=== PATIENT | male | born 1950 | race Caucasian/White ===

== ENCOUNTER 2023-10-04 22:04 | Emergency (ER) | payer MEDICARE ==
[2023-10-04 22:30] VITALS: PULSE 97; RESP 20; O2SAT 97
[2023-10-04 23:39] VITALS: PULSE 85; RESP 19; O2SAT 99
[2023-10-05 01:12] VITALS: PULSE 89; RESP 18; TEMP 98.2; O2SAT 99
== END 2023-10-05 00:30 | disposition home or self-care (01) ==
LOC: ER 22:12
DX: Z43.0 Encounter for attention to tracheostomy (principal); I12.0 Hypertensive chronic kidney disease with stage 5 chronic kidney disease or end stage renal disease; N18.6 End stage renal disease; G40.909 Epilepsy, unspecified, not intractable, without status epilepticus; Z86.73 Personal history of transient ischemic attack (TIA), and cerebral infarction without residual deficits; Z86.711 Personal history of pulmonary embolism; Z86.718 Personal history of other venous thrombosis and embolism
CPT/HCPCS: 71046; 94799; 99283

== ENCOUNTER 2023-10-08 16:44 | Emergency (ER) | payer MEDICARE ==
[~2023-10-08] VITALS: Ht 172.7 cm; Wt 86.2 kg
[2023-10-08 17:55] VITALS: PULSE 74; RESP 22; O2SAT 96
[2023-10-08 19:13] VITALS: PULSE 99; RESP 20; TEMP 99.6
[2023-10-08 20:12] VITALS: BP 148/82; PULSE 99; RESP 20; TEMP 99.6; O2SAT 94
== END 2023-10-08 20:13 ==
LOC: ER 17:05
DX: I12.9 Hypertensive chronic kidney disease with stage 1 through stage 4 chronic kidney disease, or unspecified chronic kidney disease (principal); N18.6 End stage renal disease; Z43.0 Encounter for attention to tracheostomy
CPT/HCPCS: 94799; 99283

== ENCOUNTER 2024-01-24 13:15 | Emergency (ER) | payer MEDICARE ==
[~2024-01-24] VITALS: Ht 172.7 cm; Wt 86.2 kg
[2024-01-24 13:18] VITALS: TEMP 97.4
[2024-01-24 14:11] VITALS: PULSE 76; RESP 20
[2024-01-24 14:35] VITALS: BP 128/62; PULSE 78; RESP 20; TEMP 97.6; O2SAT 97
== END 2024-01-24 14:42 ==
LOC: ER 13:20
DX: Z43.0 Encounter for attention to tracheostomy (principal); I12.0 Hypertensive chronic kidney disease with stage 5 chronic kidney disease or end stage renal disease; N18.6 End stage renal disease; G40.909 Epilepsy, unspecified, not intractable, without status epilepticus; E78.5 Hyperlipidemia, unspecified; K21.9 Gastro-esophageal reflux disease without esophagitis; L89.329 Pressure ulcer of left buttock, unspecified stage; L89.319 Pressure ulcer of right buttock, unspecified stage; Z86.718 Personal history of other venous thrombosis and embolism; Z86.73 Personal history of transient ischemic attack (TIA), and cerebral infarction without residual deficits
CPT/HCPCS: 99283

== ENCOUNTER 2024-01-29 09:31 | Inpatient (IN) | payer MEDICARE ==
[~2024-01-29] VITALS: Ht 185.4 cm; Wt 88.9 kg
[2024-01-29 09:58] VITALS: PULSE 85; RESP 18; O2SAT 97
[2024-01-29] MEDS ORDERED: ONDANSETRON HCL INJ 2MG/ML 2ML 2 MG/ML VIAL IV PRN (11:30)
[2024-01-29 12:30] VITALS: PULSE 88; RESP 22; O2SAT 93
[2024-01-29] MEDS ORDERED: ACETAMINOPHEN 650 MG SUPP PR PRN (13:30)
[2024-01-29] MEDS ORDERED: HYDRALAZINE HCL 20 MG/ML VIAL IV PRN (13:30)
[2024-01-29 16:00] VITALS: PULSE 83; RESP 16; O2SAT 99
[2024-01-29 19:38] LABS: BASOPHILS % 0.4 % (0.0-1.0); EOSINOPHILS # (AUTO) 0.4 (0.0-0.4); EOSINOPHILS % 5.9 % (0.0-6.0); HEMATOCRIT 43.5 % (38.2-49.6); HEMOGLOBIN 14.5 g/dL (14.0-18.0); LYMPHOCYTES # (AUTO) 1.5 (1.0-3.2); LYMPHOCYTES % 22.3 % (18.0-39.1); MEAN CORPUSCULAR HEMOGLOBIN 31.6 pg (28-32); MEAN CORPUSCULAR HGB CONC 33.3 g/dL (31-35); MEAN CORPUSCULAR VOLUME 94.8 fL (81-99); MONOCYTES # (AUTO) 0.5 (0.2-0.8); MONOCYTES % 7.8 % (4.4-11.3); NEUTROPHILS # (AUTO) 4.3 (2.1-6.9); NEUTROPHILS % 63.5 % (38.7-80.0); PLATELET COUNT 251 x10e3/uL (140-360); RED BLOOD COUNT 4.59 x10e6/uL (4.3-5.7); RED CELL DISTRIBUTION WIDTH 12.2 % (11.7-14.4); WHITE BLOOD COUNT 6.77 x10e3/uL (4.8-10.8)
[2024-01-29] MEDS: SODIUM CHLORIDE 0.9% 1000ML 1,000 ML IV SCH (19:39)
[2024-01-29 19:42] VITALS: TEMP 98.4
[2024-01-29 19:45] VITALS: PULSE 85; RESP 16; O2SAT 99
[2024-01-29 19:46] LABS: INR 1.02; PROTHROMBIN TIME 13.9 seconds (11.9-14.5)
[2024-01-29 19:47] LABS: PARTIAL THROMBOPLASTIN TIME 28.7 seconds (23.8-35.5)
[2024-01-29 19:56] LABS: ALBUMIN 3.4 g/dL (3.5-5.0); ANION GAP 15.9 mmol/L (8-16); BILIRUBIN,TOTAL 0.8 mg/dL (0.2-1.2); CALCIUM 9.6 mg/dL (8.4-10.2); CREATININE, SERUM 0.69 mg/dL (0.72-1.25); POTASSIUM 3.9 mmol/L (3.5-5.1); TOTAL PROTEIN 6.8 g/dL (6.5-8.1)
[2024-01-29 21:04] VITALS: PULSE 92; RESP 20
[2024-01-30] VITALS (11 sets, daily range): BP systolic 123–149; BP diastolic 65–97; PULSE 70–89; RESP 16–21; TEMP 97.6–98.2; O2SAT 92–100
[2024-01-30] MEDS ORDERED: AMLODIPINE BESY10 MG GT (02:41)
[2024-01-30] MEDS ORDERED: ATIVAN1 MG GT (02:41)
[2024-01-30] MEDS ORDERED: COLACE100 MG/10 GT (02:41)
[2024-01-30] MEDS ORDERED: METOPROLOL TART25 MG GT (03:06)
[2024-01-30] MEDS ORDERED: NALOXONE H0.4 MG/1 M (03:06)
[2024-01-30] MEDS ORDERED: MODAFINIL200 MG GT (03:06)
[2024-01-30] MEDS ORDERED: IPRAT-ALBUT 0.5-3 ML INH (03:06)
[2024-01-30] MEDS ORDERED: TERAZOSIN HCL2 MG GT (03:06)
[2024-01-30] MEDS ORDERED: FAMOTIDINE20 MG/2 ML GT (03:06)
[2024-01-30] MEDS ORDERED: KEPPRA500 MG/5 M GT (03:06)
[2024-01-30] MEDS ORDERED: TRANSDERM-SCOP1 EACH TD (03:06)
[2024-01-30] MEDS ORDERED: POLYETHYLENE GL17 GM GT (03:06)
[2024-01-30] MEDS ORDERED: SCOPOLAMINE 1 MG PATCH TD SCH (12:00)
[2024-01-30] MEDS ORDERED: POLYETHYLENE GLYCOL 3350 17 GM PACK GT PRN (12:00)
[2024-01-30] MEDS: ALBUTEROL/IPRATROPIUM 3 ML NEB INH SCH (13:32)
[2024-01-30] MEDS: TERAZOSIN HCL 1 MG CAP GT SCH (14:58)
[2024-01-30] MEDS: LEVETIRACETAM ORAL SOLUTION 500 MG/5 ML SOLN PEG SCH (14:58)
[2024-01-30] MEDS: MODAFINIL 100 MG TAB GT SCH (14:59)
[2024-01-30] MEDS: LORAZEPAM 0.5 MG TAB GT SCH (14:59)
[2024-01-30] MEDS: FAMOTIDINE 20 MG TAB GT SCH (14:59)
[2024-01-30] MEDS: AMLODIPINE BESYLATE 10 MG TAB GT SCH (14:59)
[2024-01-30] MEDS: DOCUSATE SODIUM LIQD 100 MG/10 ML UDC GT SCH (18:37)
[2024-01-30] MEDS: METOPROLOL TARTRATE 25 MG TAB GT SCH (18:37)
[2024-01-31] VITALS (8 sets, daily range): BP systolic 108–147; BP diastolic 56–97; PULSE 63–93; RESP 18–21; TEMP 97.5–98.2; O2SAT 95–100
[2024-01-31] MEDS ORDERED: FAMOTIDINE 20 MG/2 ML VIAL IV SCH (09:00)
== END 2024-01-31 17:50 | DRG 206 ==
LOC: ER 09:48 → ERHOLD 11:22 → MED/SURG2 23:18 → OBSVTOIN 01-31 12:00
PROVIDERS: ADMIT Internal Medicine; ATTEND Internal Medicine
DX: J95.03 Malfunction of tracheostomy stoma (principal); I69.354 Hemiplegia and hemiparesis following cerebral infarction affecting left non-dominant side; J96.10 Chronic respiratory failure, unspecified whether with hypoxia or hypercapnia; I69.351 Hemiplegia and hemiparesis following cerebral infarction affecting right dominant side; I69.320 Aphasia following cerebral infarction; R13.12 Dysphagia, oropharyngeal phase; Z99.81 Dependence on supplemental oxygen; G40.909 Epilepsy, unspecified, not intractable, without status epilepticus; I10 Essential (primary) hypertension; K21.9 Gastro-esophageal reflux disease without esophagitis; E78.5 Hyperlipidemia, unspecified; Z86.711 Personal history of pulmonary embolism; Z86.718 Personal history of other venous thrombosis and embolism; Z87.820 Personal history of traumatic brain injury; Z53.8 Procedure and treatment not carried out for other reasons; Z93.1 Gastrostomy status
CPT/HCPCS: 36415; 71045; 80053; 85025; 85610; 85730; 94640; 94799; 99285; G0378; J2470; J7030

== ENCOUNTER 2024-02-14 10:39 | Emergency (ER) | payer MEDICARE ==
[~2024-02-14] VITALS: Ht 185.4 cm; Wt 88.9 kg
[~2024-02-14 10:39] MED LIST: AMLODIPINE BESY10 MG GT; ATIVAN1 MG GT; COLACE100 MG/10 GT; FAMOTIDINE20 MG/2 ML GT; IPRAT-ALBUT 0.5-3 ML INH; KEPPRA500 MG/5 M GT; METOPROLOL TART25 MG GT; MODAFINIL200 MG GT; NALOXONE H0.4 MG/1 M; POLYETHYLENE GL17 GM GT; TERAZOSIN HCL2 MG GT; TRANSDERM-SCOP1 EACH TD
[2024-02-14 10:45] VITALS: TEMP 97.8
[2024-02-14 12:00] VITALS: PULSE 67; RESP 18
[2024-02-14 13:30] VITALS: BP 144/89; PULSE 79; RESP 19; TEMP 98; O2SAT 100
== END 2024-02-14 13:33 ==
LOC: ER 10:44
DX: Z43.1 Encounter for attention to gastrostomy (principal); G40.909 Epilepsy, unspecified, not intractable, without status epilepticus; I12.0 Hypertensive chronic kidney disease with stage 5 chronic kidney disease or end stage renal disease; N18.6 End stage renal disease; E78.5 Hyperlipidemia, unspecified; K21.9 Gastro-esophageal reflux disease without esophagitis; Z86.73 Personal history of transient ischemic attack (TIA), and cerebral infarction without residual deficits
CPT/HCPCS: 99283

== ENCOUNTER 2024-06-24 20:56 | Emergency (ER) | payer MEDICARE ==
[~2024-06-24] VITALS: Ht 185.4 cm; Wt 88.9 kg
[2024-06-24 21:00] VITALS: RESP 14; TEMP 98.4
[2024-06-24 23:03] VITALS: PULSE 87
[2024-06-25 03:06] VITALS: BP 121/87; O2SAT 94
== END 2024-06-25 03:07 ==
LOC: ER 20:59
DX: S00.83XA Contusion of other part of head, initial encounter (principal); M54.50 Low back pain, unspecified; W06.XXXA Fall from bed, initial encounter; Y93.84 Activity, sleeping; Y92.89 Other specified places as the place of occurrence of the external cause; I12.0 Hypertensive chronic kidney disease with stage 5 chronic kidney disease or end stage renal disease; N18.6 End stage renal disease; Z99.2 Dependence on renal dialysis; L89.329 Pressure ulcer of left buttock, unspecified stage; L89.319 Pressure ulcer of right buttock, unspecified stage; E78.5 Hyperlipidemia, unspecified; K21.9 Gastro-esophageal reflux disease without esophagitis; G40.909 Epilepsy, unspecified, not intractable, without status epilepticus; Z86.718 Personal history of other venous thrombosis and embolism; Z86.73 Personal history of transient ischemic attack (TIA), and cerebral infarction without residual deficits
CPT/HCPCS: 70450; 72131; 72170; 99283

== ENCOUNTER 2024-07-04 22:37 | Emergency (ER) | payer MEDICARE ==
[~2024-07-04] VITALS: Ht 185.4 cm; Wt 88.9 kg
[2024-07-04 22:40] VITALS: PULSE 86; RESP 16; TEMP 98.4; O2SAT 96
[2024-07-04] MEDS ORDERED: DIATRIZOATE MEGL/DIATRIZOA SOD 30 ML BTL PO ONE (23:47)
[2024-07-10] MEDS ORDERED: PANTOPRAZOLE SO40 MG PO (10:30)
[2024-07-10] MEDS ORDERED: CEPHALEXIN500 MG PO (10:31)
== END 2024-07-05 01:43 ==
LOC: ER 23:09
DX: Z43.1 Encounter for attention to gastrostomy (principal); I12.0 Hypertensive chronic kidney disease with stage 5 chronic kidney disease or end stage renal disease; N18.6 End stage renal disease; E78.5 Hyperlipidemia, unspecified; G40.909 Epilepsy, unspecified, not intractable, without status epilepticus; K21.9 Gastro-esophageal reflux disease without esophagitis; Z87.820 Personal history of traumatic brain injury; Z86.718 Personal history of other venous thrombosis and embolism
CPT/HCPCS: 43762; 74018; 99283; Q9963

== ENCOUNTER 2024-07-05 22:49 | Inpatient (IN) | payer MEDICARE ==
[~2024-07-05] VITALS: Ht 185.4 cm; Wt 88.9 kg
[2024-07-05 23:24] LABS: BASOPHILS % 0.1 % (0.0-1.0); HEMATOCRIT 44.6 % (38.2-49.6); HEMOGLOBIN 15.6 g/dL (14.0-18.0); LYMPHOCYTES # (AUTO) 0.3 (1.0-3.2); LYMPHOCYTES % 1.6 % (18.0-39.1); MEAN CORPUSCULAR HEMOGLOBIN 32.2 pg (28-32); MONOCYTES # (AUTO) 0.5 (0.2-0.8); MONOCYTES % 2.6 % (4.4-11.3); NEUTROPHILS # (AUTO) 17.4 (2.1-6.9); NEUTROPHILS % 95.4 % (38.7-80.0); PLATELET COUNT 253 x10e3/uL (140-360); RED BLOOD COUNT 4.85 x10e6/uL (4.3-5.7); RED CELL DISTRIBUTION WIDTH 12.7 % (11.7-14.4); WHITE BLOOD COUNT 18.21 x10e3/uL (4.8-10.8)
[2024-07-05 23:45] LABS: ALBUMIN 3.1 g/dL (3.5-5.0); ALBUMIN/GLOBULIN RATIO 0.8 (0.8-2.0); ANION GAP 17.4 mmol/L (8-16); BILIRUBIN,TOTAL 1.8 mg/dL (0.2-1.2); CALCIUM 9.1 mg/dL (8.4-10.2); CREATININE, SERUM 0.73 mg/dL (0.72-1.25); POTASSIUM 4.4 mmol/L (3.5-5.1); TOTAL PROTEIN 6.8 g/dL (6.5-8.1)
[2024-07-05 23:51] LABS: TROPONIN I 0.005 ng/mL (0-0.300)
[2024-07-05 23:54] LABS: BILIRUBIN,URINE SMALL (NEGATIVE); CLARITY,URINE CLEAR (CLEAR); COLOR,URINE AMBER (YELLOW); GLUCOSE, URINE NEGATIVE (NEGATIVE); KETONES,URINE NEGATIVE (NEGATIVE); LEUKOCYTE ESTERASE ,URINE SMALL (NEGATIVE); NITRITE,URINE NEGATIVE (NEGATIVE); PH,URINE 5.5 (5 - 7); PROTEIN,URINE DIPSTICK 2+ (NEGATIVE); URINE UROBILINOGEN 1 mg/dL (0.2 - 1)
[2024-07-06] VITALS (15 sets, daily range): BP systolic 97–119; BP diastolic 60–65; PULSE 78–112; RESP 18–24; TEMP 97.1–99.9; O2SAT 90–98
[2024-07-06] MEDS: SODIUM CHLORIDE 0.9% 1000ML 1,000 ML IV STA (00:08)
[2024-07-06] MEDS: ACETAMINOPHEN 1000 MG/100 ML IV STA (00:08)
[2024-07-06 00:16] LABS: BACTERIA,URINE MANY /HPF; EPITHELIAL CELLS,URINE FEW /LPF; WBC,URINE (MAN) 21-50 /HPF (0-5)
[2024-07-06] MEDS ORDERED: IOPAMIDOL 370 MG/ML 100 ML INFUS..BTL INJ ONE (00:25)
[2024-07-06] MEDS ORDERED: Morphine 4mg INJECTION 4 MG/ML INJ IV PRN (02:30)
[2024-07-06] MEDS ORDERED: ONDANSETRON HCL INJ 2MG/ML 2ML 2 MG/ML VIAL IV PRN (02:30)
[2024-07-06 02:49] LABS: INR 1.07; PROTHROMBIN TIME 14.6 seconds (11.9-14.5)
[2024-07-06 02:50] LABS: PARTIAL THROMBOPLASTIN TIME 30.3 seconds (23.8-35.5)
[2024-07-06] MEDS: SODIUM CHLORIDE 0.9% 1000ML 1,000 ML IV SCH (04:21)
[2024-07-06] MEDS ORDERED: ALBUTEROL/IPRATROPIUM 3 ML NEB INH PRN (07:45)
[2024-07-06] MEDS ORDERED: POLYETHYLENE GLYCOL 3350 17 GM PACK GT PRN (07:45)
[2024-07-06 08:12] LABS: TROPONIN I 0.027 ng/mL (0-0.300)
[2024-07-06] MEDS: LACTATED RINGER'S 1,000 ML INJ SCH (08:50)
[2024-07-06] MEDS: DOCUSATE SODIUM LIQD 100 MG/10 ML UDC GT SCH (08:51)
[2024-07-06] MEDS ORDERED: LEVETIRACETAM 500 MG/5 ML VIAL IV SCH (09:00)
[2024-07-06] MEDS: LEVETIRACETAM 500MG/5ML VIAL 500 MG in SODIUM CHLORIDE 0.9% 100 ML IV SCH (09:48)
[2024-07-06] MEDS ORDERED: METOPROLOL TARTRATE INJ 1 MG/ML VIAL IV PRN (10:00)
[2024-07-06 12:39] LABS: CORONAVIRUS COVID-19 AG NEGATIVE (NEGATIVE); INFLUENZA A AG NEGATIVE (NEGATIVE); INFLUENZA B AG NEGATIVE (NEGATIVE)
[2024-07-06 12:42] LABS: BODY FLUID APPEARANCE TURBID; BODY FLUID COLOR YELLOW; BODY FLUID TYPE PLEURAL; RBC,BODY FLUID 3000 cells/uL; WBC,BODY FLUID 22042 cells/uL
[2024-07-06 13:50] LABS: TROPONIN I 0.018 ng/mL (0-0.300)
[2024-07-06 14:46] LABS: NEUTROPHILS,BODY FLUID 95 %; OTHER CELLS,BODY FLUID 5 %
[2024-07-06 18:20] LABS: TOTAL CELLS COUNTED (DIFF) 100
[2024-07-07] VITALS (8 sets, daily range): BP systolic 96–128; BP diastolic 62–68; PULSE 80–102; RESP 18–22; TEMP 97.1–99.3; O2SAT 92–98
[2024-07-07 05:43] LABS: BASOPHILS % 0.1 % (0.0-1.0); HEMATOCRIT 37.5 % (38.2-49.6); HEMOGLOBIN 12.7 g/dL (14.0-18.0); LYMPHOCYTES # (AUTO) 0.6 (1.0-3.2); LYMPHOCYTES % 3.6 % (18.0-39.1); MEAN CORPUSCULAR HEMOGLOBIN 32.2 pg (28-32); MEAN CORPUSCULAR HGB CONC 33.9 g/dL (31-35); MEAN CORPUSCULAR VOLUME 94.9 fL (81-99); MONOCYTES # (AUTO) 0.5 (0.2-0.8); MONOCYTES % 2.7 % (4.4-11.3); NEUTROPHILS # (AUTO) 15.9 (2.1-6.9); NEUTROPHILS % 93.3 % (38.7-80.0); PLATELET COUNT 237 x10e3/uL (140-360); RED BLOOD COUNT 3.95 x10e6/uL (4.3-5.7); WHITE BLOOD COUNT 17.05 x10e3/uL (4.8-10.8)
[2024-07-07 06:13] LABS: ALBUMIN 2.2 g/dL (3.5-5.0); ALBUMIN/GLOBULIN RATIO 0.7 (0.8-2.0); BILIRUBIN,TOTAL 1.3 mg/dL (0.2-1.2); CALCIUM 9.2 mg/dL (8.4-10.2); CREATININE, SERUM 1.05 mg/dL (0.72-1.25); TOTAL PROTEIN 5.5 g/dL (6.5-8.1)
[2024-07-07 06:29] LABS: TROPONIN I 0.028 ng/mL (0-0.300)
[2024-07-07 14:12] LABS: GLUCOSE,BODY FLUID 115 mg/dL
[2024-07-07] MEDS ORDERED: PROPOFOL IV EMULSION 10 MG/ML 20 ML VIAL ONE (19:12)
[2024-07-07] MEDS ORDERED: FENTANYL CITRATE/PF 100MCG/2 ML INJ ONE (19:12)
[2024-07-07] MEDS ORDERED: Morphine 4mg INJECTION 4 MG/ML INJ IV PRN ×2 (23:30)
[2024-07-08] VITALS (10 sets, daily range): BP systolic 112–133; BP diastolic 61–75; PULSE 74–92; RESP 20; TEMP 97.2–98.5; O2SAT 93–97
[2024-07-08 09:30] LABS: ANION GAP 13.7 mmol/L (8-16); BASOPHILS % 0.1 % (0.0-1.0); CALCIUM 8.9 mg/dL (8.4-10.2); CREATININE, SERUM 0.76 mg/dL (0.72-1.25); HEMATOCRIT 33.6 % (38.2-49.6); HEMOGLOBIN 11.3 g/dL (14.0-18.0); LYMPHOCYTES # (AUTO) 0.5 (1.0-3.2); LYMPHOCYTES % 4.7 % (18.0-39.1); MEAN CORPUSCULAR HEMOGLOBIN 32.5 pg (28-32); MEAN CORPUSCULAR HGB CONC 33.6 g/dL (31-35); MEAN CORPUSCULAR VOLUME 96.6 fL (81-99); MONOCYTES # (AUTO) 0.4 (0.2-0.8); MONOCYTES % 3.6 % (4.4-11.3); NEUTROPHILS # (AUTO) 9.6 (2.1-6.9); NEUTROPHILS % 91.3 % (38.7-80.0); PLATELET COUNT 217 x10e3/uL (140-360); POTASSIUM 3.7 mmol/L (3.5-5.1); RED BLOOD COUNT 3.48 x10e6/uL (4.3-5.7); RED CELL DISTRIBUTION WIDTH 13.2 % (11.7-14.4); WHITE BLOOD COUNT 10.49 x10e3/uL (4.8-10.8)
[2024-07-08] MEDS: LACTATED RINGER'S 1,000 ML INJ ONE (09:31)
[2024-07-09] VITALS (9 sets, daily range): BP systolic 118–148; BP diastolic 62–91; PULSE 76–82; RESP 18–21; TEMP 97.2–98.1; O2SAT 95–97
[2024-07-09 06:11] LABS: EOSINOPHILS % 0.1 % (0.0-6.0); HEMATOCRIT 35.8 % (38.2-49.6); HEMOGLOBIN 11.8 g/dL (14.0-18.0); LYMPHOCYTES # (AUTO) 0.6 (1.0-3.2); LYMPHOCYTES % 7.7 % (18.0-39.1); MEAN CORPUSCULAR HEMOGLOBIN 32.2 pg (28-32); MEAN CORPUSCULAR VOLUME 97.5 fL (81-99); MONOCYTES # (AUTO) 0.5 (0.2-0.8); MONOCYTES % 6.3 % (4.4-11.3); NEUTROPHILS % 85.7 % (38.7-80.0); PLATELET COUNT 225 x10e3/uL (140-360); RED BLOOD COUNT 3.67 x10e6/uL (4.3-5.7); WHITE BLOOD COUNT 8.16 x10e3/uL (4.8-10.8)
[2024-07-09 07:48] LABS: ALBUMIN 1.9 g/dL (3.5-5.0); ALBUMIN/GLOBULIN RATIO 0.5 (0.8-2.0); ANION GAP 11.5 mmol/L (8-16); BILIRUBIN,TOTAL 0.6 mg/dL (0.2-1.2); CALCIUM 8.6 mg/dL (8.4-10.2); CREATININE, SERUM 0.67 mg/dL (0.72-1.25); POTASSIUM 3.5 mmol/L (3.5-5.1); TOTAL PROTEIN 5.4 g/dL (6.5-8.1)
[2024-07-09] MEDS: POTASSIUM CHLORIDE IN D5W 1,000 ML IV ONE (10:39)
[2024-07-09] MEDS: POTASSIUM CHLORIDE 20 MEQ TAB CR PO ONE (12:27)
[2024-07-10] VITALS: BP 132/78; PULSE 86; RESP 20; TEMP 97.7; O2SAT 95
[2024-07-10 04:00] VITALS: BP 145/97; PULSE 81; RESP 18; TEMP 97.7; O2SAT 98
[2024-07-10 09:00] VITALS: BP 136/78; PULSE 77; RESP 18; TEMP 97.4; O2SAT 98
[2024-07-10 09:38] VITALS: BP 136/78; PULSE 77; RESP 18; TEMP 97.4; O2SAT 98
[2024-07-10] MEDS ORDERED: PANTOPRAZOLE SO40 MG PO (10:30)
[2024-07-10] MEDS ORDERED: CEPHALEXIN500 MG PO (10:31)
[2024-07-10 12:51] VITALS: BP 140/82; PULSE 79; RESP 18; TEMP 97.5; O2SAT 95
== END 2024-07-10 16:45 | DRG 919 ==
LOC: ER 22:53 → ERHOLD 07-06 02:36 → MED/SURG2 07-06 04:30
PROVIDERS: ADMIT Internal Medicine; ATTEND Internal Medicine
PROC: 0W9B3ZZ Drainage of Left Pleural Cavity, Percutaneous Approach (ICD-10-PCS; 2024-07-06)
PROC: 06HY33Z Insertion of Infusion Device into Lower Vein, Percutaneous Approach (ICD-10-PCS; 2024-07-06)
PROC: 0DP6XUZ Removal of Feeding Device from Stomach, External Approach (ICD-10-PCS; 2024-07-06)
PROC: 0DH63UZ Insertion of Feeding Device into Stomach, Percutaneous Approach (ICD-10-PCS; principal; 2024-07-07 19:04)
DX: T85.79XA Infection and inflammatory reaction due to other internal prosthetic devices, implants and grafts, initial encounter (principal); A41.9 Sepsis, unspecified organism; J86.9 Pyothorax without fistula; J96.21 Acute and chronic respiratory failure with hypoxia; M62.82 Rhabdomyolysis; J90 Pleural effusion, not elsewhere classified; E87.0 Hyperosmolality and hypernatremia; I69.351 Hemiplegia and hemiparesis following cerebral infarction affecting right dominant side; J98.11 Atelectasis; N39.0 Urinary tract infection, site not specified; I12.0 Hypertensive chronic kidney disease with stage 5 chronic kidney disease or end stage renal disease; E44.0 Moderate protein-calorie malnutrition; L03.311 Cellulitis of abdominal wall; T85.528A Displacement of other gastrointestinal prosthetic devices, implants and grafts, initial encounter; K94.29 Other complications of gastrostomy; I69.391 Dysphagia following cerebral infarction; B95.1 Streptococcus, group B, as the cause of diseases classified elsewhere; Z11.52 Encounter for screening for COVID-19; E78.5 Hyperlipidemia, unspecified; G40.909 Epilepsy, unspecified, not intractable, without status epilepticus; K21.9 Gastro-esophageal reflux disease without esophagitis; N40.0 Benign prostatic hyperplasia without lower urinary tract symptoms; R53.81 Other malaise; Z87.820 Personal history of traumatic brain injury; Z86.718 Personal history of other venous thrombosis and embolism; Z86.711 Personal history of pulmonary embolism; Z68.25 Body mass index [BMI] 25.0-25.9, adult
CPT/HCPCS: 32555; 36415; 43246; 51700; 70450; 71045; 71260; 74177; 80048; 80053; 81001; 82040; 82550; 82945; 83605; 83615; 83690; 83880; 84157; 84295; 84484; 85025; 85610; 85730; 87040; 87070; 87086; 87205; 89051; 93005; 94799; 99252; 99285; C1729; J2470; J2543; J7030; J7050; Q9967

== ENCOUNTER 2024-10-24 23:00 | Emergency (ER) | payer MEDICARE ==
[~2024-10-24] VITALS: Ht 185.4 cm; Wt 88.9 kg
[2024-10-24 23:00] VITALS: PULSE 90; RESP 17; TEMP 98.5; O2SAT 94
[~2024-10-24 23:00] MED LIST changes: +CEPHALEXIN500 MG PO; +PANTOPRAZOLE SO40 MG PO
== END 2024-10-24 23:37 ==
LOC: ER 23:06
DX: Z43.1 Encounter for attention to gastrostomy (principal); I12.0 Hypertensive chronic kidney disease with stage 5 chronic kidney disease or end stage renal disease; N18.6 End stage renal disease; E78.5 Hyperlipidemia, unspecified; K21.9 Gastro-esophageal reflux disease without esophagitis; G40.909 Epilepsy, unspecified, not intractable, without status epilepticus; Z86.718 Personal history of other venous thrombosis and embolism
CPT/HCPCS: 99283

== ENCOUNTER 2024-10-25 07:40 | Inpatient (IN) | payer MEDICARE ==
[~2024-10-25] VITALS: Ht 185.4 cm; Wt 88.9 kg
[2024-10-25 08:40] LABS: BASOPHILS % 0.2 % (0.0-1.0); EOSINOPHILS % 0.0 % (0.0-6.0); LYMPHOCYTES % 1.1 % (18.0-39.1); MONOCYTES % 3.8 % (4.4-11.3); NEUTROPHILS % 94.4 % (38.7-80.0); RED CELL DISTRIBUTION WIDTH 15.1 % (11.7-14.4)
[2024-10-25] MEDS ORDERED: DIATRIZOATE MEGL/DIATRIZOA SOD 30 ML BTL PO ONE (08:46)
[2024-10-25 08:53] LABS: INR 0.99
[2024-10-25] MEDS: CEFEPIME 2 GM in SODIUM CHLORIDE 0.9% 100 ML IV ONE (09:09)
[2024-10-25] MEDS: SODIUM CHLORIDE 0.9% 1000ML 2,720 ML IV SCH (09:09)
[2024-10-25 09:14] LABS: EST GLOMERULAR FILTRATION RATE 94.0 ML/MIN (>=60)
[2024-10-25] MEDS: ACETAMINOPHEN 1000 MG/100 ML IV STA (09:14)
[2024-10-25] MEDS: VANCOMYCIN 1.5 GM/300 ML (PEG) 300 ML IV ONE (09:23)
[2024-10-25 10:41] LABS: LEUKOCYTE ESTERASE ,URINE SMALL (NEGATIVE); PROTEIN,URINE DIPSTICK 2+ (NEGATIVE); URINE UROBILINOGEN 0.2 mg/dL (0.2 - 1)
[2024-10-25 10:47] LABS: CALCIUM OXALATE CRYSTALS,UR FEW (FEW); EPITHELIAL CELLS,URINE FEW /LPF
[2024-10-25 11:00] VITALS: TEMP 99.6
[2024-10-25] MEDS: METRONIDAZOLE 500MG/NS 100ML 100 ML IV SCH (11:00)
[2024-10-25] MEDS: SODIUM CHLORIDE 0.9% 1000ML 1,000 ML IV SCH (11:27)
[2024-10-25 11:34] LABS: BAND NEUTROPHILS % (MANUAL) 2 %; EOSINOPHILS % (MANUAL) 2 % (0-7); MONOCYTES % (MANUAL) 5 % (3.4-9.0); NEUTROPHILS % (MANUAL) 90 % (40-74); REACTIVE LYMPHOCYTES 1
[2024-10-25 11:35] LABS: PLATELET ESTIMATE ADEQUATE; PLATELET MORPHOLOGY COMMENT NORMAL; RBC MORPHOLOGY COMMENT NORMAL
[2024-10-25] MEDS ORDERED: IOPAMIDOL 370 MG/ML 100 ML INFUS..BTL INJ ONE (11:48)
[2024-10-25] MEDS ORDERED: METRONIDAZOLE 500MG/NS 100ML 100 ML IV SCH (14:00)
[2024-10-25] MEDS: CEFEPIME 2 GM in SODIUM CHLORIDE 0.9% 100 ML IV SCH (17:21)
[2024-10-25 19:15] VITALS: PULSE 99; RESP 18
[2024-10-25 20:00] VITALS: BP 116/63; PULSE 101; RESP 18; TEMP 99.9; O2SAT 93
[2024-10-25] MEDS ORDERED: LEVETIRACETAM 500MG/5ML VIAL 500 MG in SODIUM CHLORIDE 0.9% 100 ML IV SCH (21:45)
[2024-10-26] VITALS (9 sets, daily range): BP systolic 105–117; BP diastolic 57–67; PULSE 88–104; RESP 17–18; TEMP 97.5–99.9; O2SAT 93–96
[2024-10-26] MEDS: LEVETIRACETAM 500MG/5ML VIAL 500 MG in SODIUM CHLORIDE 0.9% 100 ML IV SCH (01:46)
[2024-10-26 05:32] LABS: BASOPHILS % 0.1 % (0.0-1.0); EOSINOPHILS % 0.0 % (0.0-6.0); LYMPHOCYTES % 2.8 % (18.0-39.1); MONOCYTES % 4.3 % (4.4-11.3); NEUTROPHILS % 92.3 % (38.7-80.0); RED CELL DISTRIBUTION WIDTH 15.6 % (11.7-14.4)
[2024-10-26 06:10] LABS: EST GLOMERULAR FILTRATION RATE 96.0 ML/MIN (>=60)
[2024-10-26] MEDS ORDERED: IOPAMIDOL 370 MG/ML 100 ML INFUS..BTL INJ ONE (09:09)
[2024-10-26] MEDS: ENOXAPARIN SOD INJ 40 MG/0.4 ML SYR SC SCH (09:09)
[2024-10-26] MEDS ORDERED: LIDOCAINE HCL 1% 30ML-PF VIAL ONE (09:11)
[2024-10-26] MEDS ORDERED: SODIUM CHLORIDE 0.9% 250ML 250 ML ONE (09:50)
[2024-10-26] MEDS ORDERED: FENTANYL CITRATE/PF 100MCG/2 ML INJ ONE ×2 (09:50→12:10)
[2024-10-26] MEDS: DEXTROSE 5%/0.45% SOD CHL 1,000 ML IV SCH (15:19)
[2024-10-26] MEDS: BISACODYL 10 MG SUPP PR ONE (18:06)
[2024-10-27] VITALS (8 sets, daily range): BP systolic 114–123; BP diastolic 62–71; PULSE 75–93; RESP 16–20; TEMP 97.5–98.2; O2SAT 92–100
[2024-10-27 06:14] LABS: RED CELL DISTRIBUTION WIDTH 15.7 % (11.7-14.4)
[2024-10-27 06:15] LABS: BASOPHILS % 0.2 % (0.0-1.0); EOSINOPHILS % 0.4 % (0.0-6.0); LYMPHOCYTES % 4.5 % (18.0-39.1); MONOCYTES % 7.3 % (4.4-11.3); NEUTROPHILS % 87.0 % (38.7-80.0)
[2024-10-27 06:29] LABS: EST GLOMERULAR FILTRATION RATE 98.0 ML/MIN (>=60)
[2024-10-27] MEDS: POTASSIUM CHLORIDE 20MEQ/100ML 100 ML IV ONE (08:07)
[2024-10-27] MEDS: BISACODYL 10 MG SUPP PR ONE (11:26)
[2024-10-27] MEDS: POTASSIUM CHLORIDE 20 MEQ in DEXTROSE 5%/0.45% SOD CHL 1,000 ML IV SCH (13:21)
[2024-10-27] MEDS ORDERED: IOPAMIDOL 370 MG/ML 100 ML INFUS..BTL INJ ONE (14:00)
[2024-10-27] MEDS ORDERED: LIDOCAINE HCL 1% 30ML-PF VIAL ONE (14:00)
[2024-10-27] MEDS ORDERED: SODIUM CHLORIDE 0.9% 500ML 500 ML ONE (14:01)
[2024-10-27] MEDS ORDERED: FENTANYL CITRATE/PF 100MCG/2 ML INJ ONE (15:15)
[2024-10-27] MEDS ORDERED: MIDAZOLAM HCL 2 MG/2 ML VIAL ONE (15:15)
[2024-10-27] MEDS ORDERED: ALBUTEROL/IPRATROPIUM 3 ML NEB INH PRN (17:00)
[2024-10-27] MEDS ORDERED: POLYETHYLENE GLYCOL 3350 17 GM PACK GT PRN (17:00)
[2024-10-27] MEDS ORDERED: POTASSIUM CHLORIDE 20 MEQ in DEXTROSE 5%/0.45% SOD CHL 1,000 ML IV SCH (18:45)
[2024-10-27] MEDS: METOPROLOL TARTRATE 25 MG TAB GT SCH (20:31)
[2024-10-27] MEDS: DOCUSATE SODIUM LIQD 100 MG/10 ML UDC GT SCH (20:31)
[2024-10-27] MEDS: LEVETIRACETAM ORAL SOLUTION 500 MG/5 ML SOLN PO SCH (20:37)
[2024-10-27] MEDS: PANTOPRAZOLE SOD 40 MG TABEC PO SCH (21:00)
[2024-10-28] VITALS (11 sets, daily range): BP systolic 114–136; BP diastolic 60–89; PULSE 66–85; RESP 16–20; TEMP 97.4–99; O2SAT 91–98
[2024-10-28] MEDS: MODAFINIL 100 MG TAB GT SCH (05:00)
[2024-10-28 06:43] LABS: BASOPHILS % 0.3 % (0.0-1.0); EOSINOPHILS % 2.2 % (0.0-6.0); LYMPHOCYTES % 6.5 % (18.0-39.1); MONOCYTES % 7.9 % (4.4-11.3); NEUTROPHILS % 82.5 % (38.7-80.0); RED CELL DISTRIBUTION WIDTH 15.5 % (11.7-14.4)
[2024-10-28 07:20] LABS: EST GLOMERULAR FILTRATION RATE 101.0 ML/MIN (>=60)
[2024-10-28] MEDS: KCL 20 MEQ PACKET/ ORAL SOLN NG ONE (10:21)
[2024-10-28 11:41] LABS: % IRON SATURATION 16.0 % (15-50)
[2024-10-28] MEDS: ALBUTEROL/IPRATROPIUM 3 ML NEB NEB SCH (12:32)
[2024-10-28] MEDS: LEVETIRACETAM ORAL SOLUTION 500 MG/5 ML SOLN PEG ONE (21:27)
[2024-10-29] VITALS (13 sets, daily range): BP systolic 100–134; BP diastolic 47–82; PULSE 78–101; RESP 16–22; TEMP 97.7–99.3; O2SAT 92–99
[2024-10-29 07:12] LABS: BASOPHILS % 0.2 % (0.0-1.0); EOSINOPHILS % 1.7 % (0.0-6.0); LYMPHOCYTES % 6.7 % (18.0-39.1); MONOCYTES % 7.4 % (4.4-11.3); NEUTROPHILS % 83.0 % (38.7-80.0); RED CELL DISTRIBUTION WIDTH 15.7 % (11.7-14.4)
[2024-10-29 07:42] LABS: EST GLOMERULAR FILTRATION RATE 102.0 ML/MIN (>=60)
[2024-10-29] MEDS: MAGNESIUM SULF 1GRAM/DEXTROSE 100 ML IV ONE (09:51)
[2024-10-29] MEDS: KCL 20 MEQ PACKET/ ORAL SOLN NG STA (09:52)
[2024-10-29] MEDS: LEVETIRACETAM ORAL SOLUTION 500 MG/5 ML SOLN PEG SCH (09:54)
[2024-10-29] MEDS: POLYETHYLENE GLYCOL 3350 17 GM PACK GT SCH (09:54)
[2024-10-29] MEDS: DEXTROSE 5% 1,000 ML IV SCH (13:46)
[2024-10-29 21:01] LABS: EST GLOMERULAR FILTRATION RATE 103.0 ML/MIN (>=60)
[2024-10-30] VITALS (12 sets, daily range): BP systolic 107–130; BP diastolic 59–76; PULSE 60–98; RESP 18–24; TEMP 97.7–99.3; O2SAT 86–97
[2024-10-30 06:18] LABS: BASOPHILS % 0.6 % (0.0-1.0); EOSINOPHILS % 2.5 % (0.0-6.0); LYMPHOCYTES % 7.4 % (18.0-39.1); MONOCYTES % 9.8 % (4.4-11.3); NEUTROPHILS % 78.0 % (38.7-80.0); RED CELL DISTRIBUTION WIDTH 15.7 % (11.7-14.4)
[2024-10-30 06:59] LABS: EST GLOMERULAR FILTRATION RATE 103.0 ML/MIN (>=60)
[2024-10-30] MEDS: POLYETHYLENE GLYCOL 3350 17 GM PACK GT SCH (08:49)
[2024-10-30] MEDS: IRON SUCROSE 100 MG in SODIUM CHLORIDE 0.9% 100 ML IV SCH (08:56)
[2024-10-30 16:45] LABS: INR 1.2
[2024-10-30] MEDS: LORAZEPAM 1 MG TAB GT PRN (21:28)
[2024-10-31] VITALS (14 sets, daily range): BP systolic 100–121; BP diastolic 52–78; PULSE 64–101; RESP 12–20; TEMP 97.9–99.5; O2SAT 90–97
[2024-10-31 08:30] LABS: BASOPHILS % 0.3 % (0.0-1.0); EOSINOPHILS % 2.8 % (0.0-6.0); LYMPHOCYTES % 7.5 % (18.0-39.1); MONOCYTES % 6.9 % (4.4-11.3); NEUTROPHILS % 80.7 % (38.7-80.0); RED CELL DISTRIBUTION WIDTH 15.4 % (11.7-14.4)
[2024-10-31 09:17] LABS: EST GLOMERULAR FILTRATION RATE 105.0 ML/MIN (>=60)
[2024-10-31] MEDS: ENOXAPARIN SOD INJ 40 MG/0.4 ML SYR SC SCH (09:49)
[2024-10-31 12:07] LABS: BODY FLUID TYPE PLEURAL
[2024-10-31 12:08] LABS: BODY FLUID APPEARANCE CLOUDY; BODY FLUID COLOR RED; WBC,BODY FLUID 1047 cells/uL
[2024-10-31 12:22] LABS: LYMPHOCYTES,BODY FLUID 96 %; NEUTROPHILS,BODY FLUID 4 %; TOTAL CELLS COUNTED (DIFF) 100
[2024-11-01] VITALS (13 sets, daily range): BP systolic 97–141; BP diastolic 46–82; PULSE 75–96; RESP 13–20; TEMP 97.7–99.1; O2SAT 91–100
[2024-11-01] MEDS: ACETAMINOPHEN 325 MG TAB GT PRN (01:30)
[2024-11-01] MEDS ORDERED: ACETAMINOPHEN 325 MG TAB PO PRN (01:30)
[2024-11-01 05:46] LABS: BASOPHILS % 0.3 % (0.0-1.0); EOSINOPHILS % 3.5 % (0.0-6.0); LYMPHOCYTES % 9.0 % (18.0-39.1); MONOCYTES % 7.7 % (4.4-11.3); NEUTROPHILS % 77.5 % (38.7-80.0); RED CELL DISTRIBUTION WIDTH 15.1 % (11.7-14.4)
[2024-11-01 06:29] LABS: EST GLOMERULAR FILTRATION RATE 105.0 ML/MIN (>=60)
[2024-11-01] MEDS ORDERED: LIDOCAINE HCL 1% 30ML-PF VIAL ONE (14:41)
[2024-11-01 18:05] LABS: TOTAL PROTEIN,BODY FLUID 2.8 g/dL
[2024-11-02] VITALS (12 sets, daily range): BP systolic 102–129; BP diastolic 54–72; PULSE 78–95; RESP 16–23; TEMP 97.5–98.4; O2SAT 93–99
[2024-11-02 05:21] LABS: BASOPHILS % 0.3 % (0.0-1.0); EOSINOPHILS % 4.1 % (0.0-6.0); LYMPHOCYTES % 7.2 % (18.0-39.1); MONOCYTES % 8.8 % (4.4-11.3); NEUTROPHILS % 77.5 % (38.7-80.0); RED CELL DISTRIBUTION WIDTH 15.0 % (11.7-14.4)
[2024-11-02 06:01] LABS: EST GLOMERULAR FILTRATION RATE 106.0 ML/MIN (>=60)
[2024-11-03] VITALS (14 sets, daily range): BP systolic 109–127; BP diastolic 61–82; PULSE 79–104; RESP 13–24; TEMP 97.9–99.7; O2SAT 92–99
[2024-11-04] VITALS (13 sets, daily range): BP systolic 102–132; BP diastolic 51–90; PULSE 74–102; RESP 14–24; TEMP 97.9–99.5; O2SAT 93–100
[2024-11-05] VITALS (10 sets, daily range): BP systolic 106–120; BP diastolic 63–73; PULSE 82–100; RESP 16–18; TEMP 98.3–98.7; O2SAT 92–98
[2024-11-05 07:04] LABS: EST GLOMERULAR FILTRATION RATE 106.0 ML/MIN (>=60)
[2024-11-05 07:27] LABS: BASOPHILS % 0.4 % (0.0-1.0); EOSINOPHILS % 3.6 % (0.0-6.0); LYMPHOCYTES % 8.0 % (18.0-39.1); MONOCYTES % 8.0 % (4.4-11.3); NEUTROPHILS % 78.8 % (38.7-80.0); RED CELL DISTRIBUTION WIDTH 14.8 % (11.7-14.4)
[2024-11-06] VITALS (14 sets, daily range): BP systolic 99–121; BP diastolic 51–72; PULSE 71–96; RESP 16–20; TEMP 97.1–99; O2SAT 88–100
[2024-11-06 08:54] LABS: BASOPHILS % 0.3 % (0.0-1.0); EOSINOPHILS % 3.4 % (0.0-6.0); LYMPHOCYTES % 7.5 % (18.0-39.1); MONOCYTES % 7.2 % (4.4-11.3); NEUTROPHILS % 80.6 % (38.7-80.0); RED CELL DISTRIBUTION WIDTH 14.9 % (11.7-14.4)
[2024-11-06] MEDS: SCOPOLAMINE 1 MG PATCH TD SCH (14:54)
[2024-11-07] VITALS (8 sets, daily range): BP systolic 100–141; BP diastolic 56–69; PULSE 74–93; RESP 18–20; TEMP 97–97.9; O2SAT 94–98
[2024-11-07 03:51] LABS: LEUKOCYTE ESTERASE ,URINE NEGATIVE (NEGATIVE); PROTEIN,URINE DIPSTICK 1+ (NEGATIVE); URINE UROBILINOGEN 1 mg/dL (0.2 - 1)
[2024-11-07 04:05] LABS: CALCIUM OXALATE CRYSTALS,UR FEW (FEW); EPITHELIAL CELLS,URINE FEW /LPF
== END 2024-11-07 14:00 | DRG 871 ==
LOC: ER 07:40 → ERHOLD 10:56 → MED/SURG 20:27
PROVIDERS: ADMIT Family Medicine Adult Medicine; ATTEND Family Medicine Adult Medicine
PROC: 3E0333Z Introduction of Anti-inflammatory into Peripheral Vein, Percutaneous Approach (ICD-10-PCS; 2024-10-25)
PROC: 0W9G30Z Drainage of Peritoneal Cavity with Drainage Device, Percutaneous Approach (ICD-10-PCS; principal; 2024-10-26)
PROC: 0DH63UZ Insertion of Feeding Device into Stomach, Percutaneous Approach (ICD-10-PCS; 2024-10-27)
PROC: 0W9B3ZZ Drainage of Left Pleural Cavity, Percutaneous Approach (ICD-10-PCS; 2024-10-31)
DX: A41.59 Other Gram-negative sepsis (principal); G93.41 Metabolic encephalopathy; J96.21 Acute and chronic respiratory failure with hypoxia; K65.1 Peritoneal abscess; J69.0 Pneumonitis due to inhalation of food and vomit; J90 Pleural effusion, not elsewhere classified; G81.92 Hemiplegia, unspecified affecting left dominant side; E44.0 Moderate protein-calorie malnutrition; K94.22 Gastrostomy infection; T85.528A Displacement of other gastrointestinal prosthetic devices, implants and grafts, initial encounter; N39.0 Urinary tract infection, site not specified; Z93.0 Tracheostomy status; Z66 Do not resuscitate; B96.4 Proteus (mirabilis) (morganii) as the cause of diseases classified elsewhere; L89.152 Pressure ulcer of sacral region, stage 2; R13.12 Dysphagia, oropharyngeal phase; I10 Essential (primary) hypertension; E78.5 Hyperlipidemia, unspecified; D50.9 Iron deficiency anemia, unspecified; R47.02 Dysphasia; K21.9 Gastro-esophageal reflux disease without esophagitis; K25.9 Gastric ulcer, unspecified as acute or chronic, without hemorrhage or perforation; K59.00 Constipation, unspecified; N20.0 Calculus of kidney; F03.90 Unspecified dementia, unspecified severity, without behavioral disturbance, psychotic disturbance, mood disturbance, and anxiety; K29.70 Gastritis, unspecified, without bleeding; N40.0 Benign prostatic hyperplasia without lower urinary tract symptoms; N28.1 Cyst of kidney, acquired; G40.909 Epilepsy, unspecified, not intractable, without status epilepticus; Z68.25 Body mass index [BMI] 25.0-25.9, adult; S06.9X0S Unspecified intracranial injury without loss of consciousness, sequela; Y83.3 Surgical operation with formation of external stoma as the cause of abnormal reaction of the patient, or of later complication, without mention of misadventure at the time of the procedure; Z95.828 Presence of other vascular implants and grafts; Z87.820 Personal history of traumatic brain injury; Z86.711 Personal history of pulmonary embolism; Z87.891 Personal history of nicotine dependence
CPT/HCPCS: 32555; 36415; 49406; 49423; 49440; 51700; 70450; 71045; 71250; 71260; 74018; 74019; 74150; 74176; 74177; 74470; 76700; 77012; 80048; 80053; 81001; 82607; 82728; 82746; 82948; 83010; 83540; 83605; 83615; 83690; 83735; 84157; 84466; 85025; 85045; 85610; 85730; 86880; 87040; 87070; 87071; 87086; 87186; 87205; 89051; 93005; 93306; 93971; 94640; 94799; 99252; 99285; C1729; C1769; J0692; J1650; J1756; J2003; J2250; J2470; J3475; J3480; J7030; J7040; J7050; J7070; Q9963; Q9967

== ENCOUNTER → 2024-11-30 | Outpatient (REF) | payer MEDICARE | LOC: CT 15:30 | PROVIDERS: ATTEND Nurse Practitioner Family | DX: J18.9 Pneumonia, unspecified organism (principal) | CPT/HCPCS: 71250 ==

== ENCOUNTER 2024-12-10 11:56 | Inpatient (IN) | payer MEDICARE ==
[~2024-12-10] VITALS: Ht 185.4 cm; Wt 88.9 kg
[2024-12-10] VITALS (7 sets, daily range): BP systolic 108–111; BP diastolic 69–90; PULSE 57–83; RESP 18–22; TEMP 97.5–98.8; O2SAT 96–98
[2024-12-10 12:36] LABS: BASOPHILS % 0.5 % (0.0-1.0); EOSINOPHILS % 9.9 % (0.0-6.0); LYMPHOCYTES % 15.6 % (18.0-39.1); MONOCYTES % 8.7 % (4.4-11.3); NEUTROPHILS % 65.1 % (38.7-80.0); RED CELL DISTRIBUTION WIDTH 14.4 % (11.7-14.4)
[2024-12-10 12:56] LABS: EST GLOMERULAR FILTRATION RATE 95.0 ML/MIN (>=60)
[2024-12-10] MEDS ORDERED: APIXABAN 5 MG TABLET PEG SCH (18:45)
[2024-12-10] MEDS ORDERED: PANTOPRAZOLE SOD 40 MG TABEC PO SCH (19:30)
[2024-12-10] MEDS: LEVETIRACETAM 500 MG TAB PO ONE (20:36)
[2024-12-10] MEDS: TAMSULOSIN HCL 0.4 MG CAP GT SCH (20:36)
[2024-12-10] MEDS: PANTOPRAZOLE SOD 40 MG TABEC PO SCH (20:36)
[2024-12-10] MEDS: APIXABAN 5 MG TABLET PEG SCH (20:36)
[2024-12-10] MEDS ORDERED: LEVETIRACETAM ORAL SOLUTION 500 MG/5 ML SOLN PEG SCH ×2 (21:00)
[2024-12-11] VITALS (11 sets, daily range): BP systolic 103–114; BP diastolic 61–79; PULSE 67–91; RESP 16–20; TEMP 97.2–98.8; O2SAT 90–99
[2024-12-11 06:09] LABS: BASOPHILS % 0.3 % (0.0-1.0); EOSINOPHILS % 6.1 % (0.0-6.0); LYMPHOCYTES % 18.5 % (18.0-39.1); MONOCYTES % 8.9 % (4.4-11.3); NEUTROPHILS % 66.0 % (38.7-80.0); RED CELL DISTRIBUTION WIDTH 14.3 % (11.7-14.4)
[2024-12-11 06:36] LABS: EST GLOMERULAR FILTRATION RATE 93.0 ML/MIN (>=60)
[2024-12-11] MEDS: ALBUTEROL/IPRATROPIUM 3 ML NEB INH SCH (07:40)
[2024-12-11 08:53] LABS: INR 1.14
[2024-12-11] MEDS: ASPIRIN 81 MG CHEW TAB PEG SCH (09:00)
[2024-12-11] MEDS: LEVETIRACETAM ORAL SOLUTION 500 MG/5 ML SOLN PEG SCH (09:00)
[2024-12-11] MEDS: LORAZEPAM 1 MG TAB GT SCH (09:00)
[2024-12-11] MEDS: DOCUSATE SODIUM LIQD 100 MG/10 ML UDC GT SCH (09:00)
[2024-12-11] MEDS: SODIUM CHLORIDE 0.9% 1000ML 1,000 ML IV SCH (11:33)
[2024-12-12] VITALS (7 sets, daily range): BP systolic 108–128; BP diastolic 54–84; PULSE 60–83; RESP 18; TEMP 96–97.8; O2SAT 92–100
[2024-12-12 05:36] LABS: BASOPHILS % 0.4 % (0.0-1.0); EOSINOPHILS % 6.8 % (0.0-6.0); LYMPHOCYTES % 28.5 % (18.0-39.1); MONOCYTES % 11.6 % (4.4-11.3); NEUTROPHILS % 52.3 % (38.7-80.0); RED CELL DISTRIBUTION WIDTH 14.4 % (11.7-14.4)
[2024-12-12 06:39] LABS: EST GLOMERULAR FILTRATION RATE 90.0 ML/MIN (>=60)
[2024-12-12] MEDS ORDERED: FENTANYL CITRATE/PF 100MCG/2 ML INJ ONE (11:53)
[2024-12-12] MEDS ORDERED: MIDAZOLAM HCL 2 MG/2 ML VIAL ONE (11:53)
[2024-12-12] MEDS ORDERED: SODIUM CHLORIDE 0.9% 250ML 250 ML ONE (11:53)
[2024-12-12] MEDS ORDERED: LEVOFLOXAC250 MG/10 GT (20:07)
[2024-12-12] MEDS ORDERED: METRONIDAZOLE500 MG GT (20:07)
== END 2024-12-12 19:30 | DRG 919 ==
LOC: ER 12:06 → ERHOLD 14:05 → MED/SURG2 15:56 → OBSVTOIN 12-11 10:03
PROVIDERS: ADMIT Family Medicine Adult Medicine; ATTEND Family Medicine Adult Medicine
PROC: 0W9G30Z Drainage of Peritoneal Cavity with Drainage Device, Percutaneous Approach (ICD-10-PCS; principal; 2024-12-12)
DX: T85.628A Displacement of other specified internal prosthetic devices, implants and grafts, initial encounter (principal); N18.6 End stage renal disease; I12.0 Hypertensive chronic kidney disease with stage 5 chronic kidney disease or end stage renal disease; J90 Pleural effusion, not elsewhere classified; I69.854 Hemiplegia and hemiparesis following other cerebrovascular disease affecting left non-dominant side; J96.10 Chronic respiratory failure, unspecified whether with hypoxia or hypercapnia; E88.09 Other disorders of plasma-protein metabolism, not elsewhere classified; Z93.0 Tracheostomy status; Z66 Do not resuscitate; Z99.2 Dependence on renal dialysis; E78.5 Hyperlipidemia, unspecified; N28.1 Cyst of kidney, acquired; I99.9 Unspecified disorder of circulatory system; K21.9 Gastro-esophageal reflux disease without esophagitis; R13.10 Dysphagia, unspecified; N40.0 Benign prostatic hyperplasia without lower urinary tract symptoms; G40.909 Epilepsy, unspecified, not intractable, without status epilepticus; Z86.711 Personal history of pulmonary embolism; Z86.718 Personal history of other venous thrombosis and embolism; Z95.828 Presence of other vascular implants and grafts; Z93.1 Gastrostomy status; Z87.820 Personal history of traumatic brain injury
CPT/HCPCS: 36415; 49406; 71250; 74176; 74470; 76942; 80048; 80053; 82948; 85025; 85610; 87070; 87205; 94799; 99252; 99284; C1729; G0378; J2250; J2470; J2543; J7030; J7050

== ENCOUNTER 2025-01-16 21:25 | Emergency (ER) | payer MEDICARE ==
[~2025-01-16] VITALS: Ht 188 cm; Wt 78.0 kg
[~2025-01-16 21:25] MED LIST changes: +LEVOFLOXAC250 MG/10 GT; +METRONIDAZOLE500 MG GT
[2025-01-16 22:05] VITALS: PULSE 99; RESP 18; TEMP 98.5
[2025-01-17 02:06] VITALS: BP 148/85; O2SAT 99
== END 2025-01-17 01:42 | disposition other institution (70) ==
LOC: ER 21:36
DX: Z43.1 Encounter for attention to gastrostomy (principal); I12.0 Hypertensive chronic kidney disease with stage 5 chronic kidney disease or end stage renal disease; N18.6 End stage renal disease; I1A.0 Resistant hypertension; G40.909 Epilepsy, unspecified, not intractable, without status epilepticus; K21.9 Gastro-esophageal reflux disease without esophagitis; E78.5 Hyperlipidemia, unspecified; Z86.73 Personal history of transient ischemic attack (TIA), and cerebral infarction without residual deficits; Z86.718 Personal history of other venous thrombosis and embolism; L89.329 Pressure ulcer of left buttock, unspecified stage; L89.319 Pressure ulcer of right buttock, unspecified stage
CPT/HCPCS: 99284

== ENCOUNTER 2025-01-26 22:46 | Emergency (ER) | payer MEDICARE ==
[~2025-01-26] VITALS: Ht 188 cm; Wt 78.0 kg
[2025-01-26 23:17] LABS: BASOPHILS % 0.1 % (0.0-1.0); EOSINOPHILS % 2.7 % (0.0-6.0); LYMPHOCYTES % 16.1 % (18.0-39.1); MONOCYTES % 7.6 % (4.4-11.3); NEUTROPHILS % 73.4 % (38.7-80.0); RED CELL DISTRIBUTION WIDTH 14.9 % (11.7-14.4)
[2025-01-26 23:33] LABS: INR 1.11
[2025-01-26 23:43] LABS: EST GLOMERULAR FILTRATION RATE 99.0 ML/MIN (>=60)
[2025-01-27] MEDS ORDERED: ONDANSETRON HCL INJ 2MG/ML 2ML 2 MG/ML VIAL IV PRN
[2025-01-27] MEDS ORDERED: SODIUM CHLORIDE 0.9% 1000ML 1,000 ML IV SCH
[2025-01-27] MEDS ORDERED: Morphine 4mg INJECTION 4 MG/ML INJ IV PRN
[2025-01-27 02:06] VITALS: BP 121/70; PULSE 76; RESP 17; TEMP 97.8
[2025-01-27] MEDS ORDERED: PIPERACILLIN/TAZOBACTAM 3.375 GM VIAL ONE (02:43)
[2025-01-27 02:46] VITALS: PULSE 76; RESP 18; TEMP 98; O2SAT 98
[2025-01-27 02:48] LABS: PROTEIN,URINE DIPSTICK 1+ (NEGATIVE)
[2025-01-27 02:49] LABS: LEUKOCYTE ESTERASE ,URINE 2+ (NEGATIVE); URINE UROBILINOGEN 0.2 mg/dL (0.2 - 1)
[2025-01-27 02:54] LABS: EPITHELIAL CELLS,URINE FEW /LPF; WBC,URINE (MAN) >50 /HPF (0-5)
[2025-01-27] MEDS ORDERED: IOPAMIDOL 370 MG/ML 100 ML INFUS..BTL INJ ONE (05:45)
== END 2025-01-27 03:05 | disposition other institution (70) ==
LOC: ER 22:52 → ERHOLD 01-27 00:04 → UNDOADMIN 01-27 00:04 → ER 01-27 03:05
DX: Z43.1 Encounter for attention to gastrostomy (principal); J90 Pleural effusion, not elsewhere classified; S37.011A Minor contusion of right kidney, initial encounter; K56.41 Fecal impaction; N20.0 Calculus of kidney; K76.0 Fatty (change of) liver, not elsewhere classified; I12.0 Hypertensive chronic kidney disease with stage 5 chronic kidney disease or end stage renal disease; N18.6 End stage renal disease; E78.5 Hyperlipidemia, unspecified; L89.329 Pressure ulcer of left buttock, unspecified stage; L89.319 Pressure ulcer of right buttock, unspecified stage; G40.909 Epilepsy, unspecified, not intractable, without status epilepticus; K21.9 Gastro-esophageal reflux disease without esophagitis; Z86.73 Personal history of transient ischemic attack (TIA), and cerebral infarction without residual deficits
CPT/HCPCS: 36415; 51702; 74177; 80053; 81001; 85025; 85610; 99284; J2543; Q9967; 51700